=== PATIENT | female | born 1990 | race African-American/Black ===

== ENCOUNTER 2020-08-18 18:32 | Emergency (ER) | payer OTHER ==
[~2020-08-18] VITALS: Ht 177.8 cm; Wt 118.0 kg
[2020-08-18 18:38] VITALS: BP 148/94
== END 2020-08-18 20:03 | disposition home or self-care (01) ==
LOC: ER 19:01
DX: E11.649 Type 2 diabetes mellitus with hypoglycemia without coma (principal); R03.0 Elevated blood-pressure reading, without diagnosis of hypertension
CPT/HCPCS: 82962; 99281